=== PATIENT | female | born 1935 | race Caucasian/White ===

== ENCOUNTER 2016-06-30 11:55 | Emergency (ER) | payer MEDICARE, OTHER ==
--- NOTE | 2016-06-30 13:56 | RAD ---
History: Cough with dyspnea. Comparison: 05/28/2012. Technique: 2 views Findings: The soft tissue and bony structures appear to be appropriate. The heart size is stable. There is prominence of the central pulmonary arterial tree which is also stable. There is evidence of pulmonary hyperinflation. A calcified density projects over the lower thoracic spine on the lateral view, likely a calcified granuloma and appearing stable from the prior exam. No infiltrate, effusion or pneumothorax is visualized. Impression: 1. Pulmonary hyperinflation suggesting findings of chronic obstructive pulmonary disease. 2. Central pulmonary vascular prominence, similar to the appearance on prior examination. 3. Evidence suggesting prior granulomatous disease.
--- NOTE | 2016-06-30 15:39 | RAD ---
WRIST- LEFT 3 VIEWS HISTORY: Injury. Swelling and bruising. COMPARISONS: Hand exam dated 01/05/2012. FINDINGS: 3 views of the left wrist demonstrate diffuse bony osteopenia. Significant soft tissue swelling is evident over the carpus and the proximal metacarpals. No definitive fracture is visualized. There are prominent osteoarthritic changes noted of the first carpometacarpal articulation with progression since prior examination of 2011. No focal soft tissue abnormalities are otherwise observed. IMPRESSION: 1. Diffuse significant soft tissue swelling. 2. No definitive fracture identified. 3. Bony osteopenia. 4. 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
[2016-06-30] MEDS ORDERED: DOCUSATE SODIUM 10 MG/ML SOLN.DROP ONE (15:58)
[2016-06-30] MEDS ORDERED: CIPRODEX OTIC 150 GTTS/7.5 ML BOT SUSP.DROP AD ONE (17:30)
== END 2016-06-30 17:51 | disposition home or self-care (01) ==
LOC: ED 11:55
DX: S60.222A Contusion of left hand, initial encounter (principal); J44.9 Chronic obstructive pulmonary disease, unspecified; I10 Essential (primary) hypertension; E11.9 Type 2 diabetes mellitus without complications; Z87.891 Personal history of nicotine dependence; Z79.4 Long term (current) use of insulin; W22.8XXA Striking against or struck by other objects, initial encounter; Y92.9 Unspecified place or not applicable
CPT/HCPCS: 71020; 73110; 99283 ×2; A9270 ×2